=== PATIENT | male | born 1995 | race Caucasian/White ===

== ENCOUNTER → 2023-01-02 | Outpatient (CLI) | payer OTHER ==
[~2023-01-02] MED LIST: ADVAIR DISKUS1 DS1 INH; AUGMENTIN 875 M1 TA1 PO; FLONASE 0.05% 121 EA NAS; MAXAIR0.2 MG/ACT; SINGULAIR5 MG PO; ZYRTEC10 M1 PO
[2023-01-06 16:07] LABS: LEAD BLOOD <1.0 ug/dL (0.0-3.4)
== END | disposition home or self-care (01) ==
LOC: LAB 17:37
PROVIDERS: ATTEND Internal Medicine
DX: R78.79 Finding of abnormal level of heavy metals in blood (principal)